=== PATIENT | female | born 1950 | race Caucasian/White ===

== ENCOUNTER 2016-06-22 10:55 | Emergency (ER) | payer BC ==
[~2016-06-22] VITALS: Ht 152.4 cm; Wt 74.4 kg
[~2016-06-22 10:55] MED LIST: MIRALAX17 GM PO; OMEPRAZOLE20 MG PO; PERCOCET 5/31 TABLET PO; SIMVASTATIN40 MG PO; VENLAFAXINE HC150 M1 PO
[2016-06-22] MEDS ORDERED: NAPROSYN500 MG PO (14:54)
[2016-06-22] MEDS ORDERED: ULTRAM50 MG PO (14:54)
[2016-06-22 16:39] VITALS: BP 135/58
== END 2016-06-22 16:40 | disposition home or self-care (01) ==
LOC: EME 10:55
DX: S20.212A Contusion of left front wall of thorax, initial encounter (principal); S80.02XA Contusion of left knee, initial encounter; W17.2XXA Fall into hole, initial encounter; Y93.K1 Activity, walking an animal; Z79.82 Long term (current) use of aspirin; Z85.820 Personal history of malignant melanoma of skin
CPT/HCPCS: 71101; 99281; 99284

== ENCOUNTER → 2017-04-05 | Outpatient (CLI) | payer MEDICARE, OTHER ==
[~2017-04-05] MED LIST changes: +NAPROSYN500 MG PO; +ULTRAM50 MG PO
== END | disposition home or self-care (01) ==
LOC: CDC 09:49
DX: Z01.810 Encounter for preprocedural cardiovascular examination (principal); M25.562 Pain in left knee; S83.232A Complex tear of medial meniscus, current injury, left knee, initial encounter; M67.462 Ganglion, left knee
CPT/HCPCS: 93000